=== PATIENT | female | born 1970 | race Two or more races ===

== ENCOUNTER 2025-01-14 23:24 | Emergency (ER) | payer SELFPAY ==
[~2025-01-14] VITALS: Ht 154.9 cm; Wt 127.0 kg
[2025-01-14 23:24] VITALS: BP 117/61; RESP 16; TEMP 97.8; O2SAT 98
[2025-01-14 23:57] VITALS: PULSE 78
--- NOTE | 2025-01-16 09:04 | ECG ---
[facility] Test Date: 2025-01-14 Test Time: 23:57:08 Pat Name: KEZIA NIETO Department: ED Room: Gender: F Access Nurse: stanley : 1970 Requested By: EMERGENCY EMERGENCY Order Number: [id number] Reading MD: James Wilks Measurements Intervals Elbert Rate: 78 P: 34 WY: 163 QRS: 29 QRSD: 124 T: 6 QT: 433 QTc: 494 Interpretive Statements Sinus rhythm Nonspecific intraventricular conduction delay Anteroseptal infarct, old Electronically Signed On 01-16-2025 14:07:13 PDT by James Wilks Please click the below link to view image of tracing.
== END 2025-01-15 05:41 | disposition left against medical advice (07) ==
LOC: ER 23:24
DX: F41.9 Anxiety disorder, unspecified (principal); Z53.21 Procedure and treatment not carried out due to patient leaving prior to being seen by health care provider; Z79.899 Other long term (current) drug therapy
CPT/HCPCS: 93005